=== PATIENT | female | born 1955 | race Caucasian/White ===

== ENCOUNTER → 2017-04-07 | Outpatient (CLI) | payer OTHER ==
[2017-04-07 11:15] LABS: CHOLESTEROL/HDL RATIO 2.9
== END | disposition home or self-care (01) ==
LOC: C.LABBC 07:27
PROVIDERS: ATTEND Physician Assistant Medical
DX: Z00.00 Encounter for general adult medical examination without abnormal findings (principal); Z11.59 Encounter for screening for other viral diseases

== ENCOUNTER → 2017-05-23 | Outpatient (CLI) | payer OTHER ==
--- NOTE | 2017-05-23 14:41 | MAMMOGRAPHY REPORT ---
BILATERAL DIGITAL SCREENING MAMMOGRAM TOMOSYNTHESIS WITH CAD: 05/23/2017 CLINICAL HISTORY: Routine screening. Patient has no complaints. TECHNIQUE: Breast tomosynthesis in addition to standard 2D mammography was performed. Current study was also evaluated with a Computer Aided Detection (CAD) system. COMPARISON: Comparison is made to exam dated: 03/12/2008. BREAST COMPOSITION: There are scattered areas of fibroglandular density in both breasts. FINDINGS: There is a possible cluster of punctate microcalcifications in the upper outer anterior ri ght breast, for which additional spot magnification views are recommended. A 5 mm focal asymmetry in the central left breast was not definitely seen on the prior mammogram from 03/12/2008 and additiona l spot compression tomosynthesis views and possible ultrasound are recommended. No other suspicious mass, architectural distortion or cluster of microcalcifications is seen bilatera lly. IMPRESSION: ACR BI-RADS CATEGORY 0: INCOMPLETE EVALUATION: NEED ADDITIONAL IMAGING EVALUATION The possible cluster of punctate microcalcifications in the upper outer right breast, and 5 mm focal asymmetry in the central left breast need additional imaging evaluation. The patient will be called to schedule an appointment. Approximately 10% of breast cancers are not detected with mammography. A negative mammographic report should not delay biopsy if a clinically suggestive mass is present. Candy Pantoja M.D. ay/:05/23/2017 08:36:03 Adult Neurologist: Danika Perdomo, [facility] letter sent: Addl Imaging 0 BI-RADS Code: ACR BI-RADS Category 0: Incomplete Evaluation: Need Additional Imaging Evaluation
== END | disposition home or self-care (01) ==
LOC: C.MAMM 07:13
PROVIDERS: ATTEND Physician Assistant Medical
DX: Z12.31 Encounter for screening mammogram for malignant neoplasm of breast (principal)

== ENCOUNTER → 2017-05-25 | Outpatient (CLI) | payer OTHER ==
--- NOTE | 2017-05-25 15:35 | MAMMOGRAPHY REPORT ---
BILATERAL DIGITAL DIAGNOSTIC MAMMOGRAM TOMOSYNTHESIS AND TARGETED LEFT ULTRASOUND: 05/25/2017 CLINICAL HISTORY: Callback from screening mammogram for left breast asymmetry and right breast calcif ications. TECHNIQUE: Breast tomosynthesis in addition to standard 2D mammography was performed. Spot compress ion left CC and MLO 2-D and tomosynthesis images and spot magnification right cc and ML views were ob tained. COMPARISON: Comparison is made to exams dated: 05/23/2017 mammogram - [facility] an d 03/12/2008. BREAST COMPOSITION: There are scattered areas of fibroglandular density in both breasts. FINDINGS: Spot magnification views of the right breast demonstrate a small 5 mm cluster of faint pun ctate calcifications in the right upper outer quadrant. When compared to prior exams, the calcificat ions may have been present on the prior 2007 mammograms although it is difficult to make an accurate comparison due to significant differences in mammographic technique. The calcifications are probably benign given probable long-term stability and recommend follow-up mammograms in 6 months to confirm stability on spot magnification views. Spot compression views of the left breast demonstrate an oval circumscribed 5 mm mass within the left superior breast at 12:00, best seen on the cc tomosynthesis images. Targeted ultrasound was performed of the left 12:00 breast in the region of the mammographic mass. I n the left breast at 12:00 periareolar region, there is a round circumscribed hypoechoic 3 x 2 x 3 mm mass. This likely corresponds with the mammographic mass and is indeterminant, and may represent a complicated cyst versus a solid mass. In the left breast at 11:00 periareolar region, there is a sma ller round circumscribed hypoechoic 2 x 2 mm mass which appears similar to the 12:00 mass and is prob ably benign. In the left 11:00 breast, 1 cm from the nipple, there is an oval anechoic benign simple cyst measuring 2 x 2 mm. IMPRESSION: ACR BI-RADS CATEGORY 4: SUSPICIOUS, TARGETED ULTRASOUND ACR BI-RADS CATEGORY 4: SUSPICIO US 1. Hypoechoic 3 mm mass in the left 12:00 breast, which likely corresponds with a newly visualized m ammographic mass. The mass is indeterminate and ultrasound-guided aspiration versus core needle biop sy is recommended for further evaluation. This may represent a complicated cyst versus a solid mass. 2. Pending benign pathology results of the left breast mass, recommend follow-up diagnostic mammogra ms and ultrasound of the left breast in 6 months to confirm stability of a smaller similar appearing 2 mm mass in the left 11:00 breast on ultrasound. 3. Small 5 mm cluster of punctate benign calcifications in the right upper outer quadrant, which was likely present on the 2007 exam although it is difficult to make an accurate comparison due to techn ical differences. Recommend follow-up diagnostic mammograms of the right breast in 6 months to confi rm stability on spot magnification views. A phone call was made to the physician's office to confirm faxed results were received. The patient has been verbally notified of the results. She tentatively scheduled the biopsy before leaving the [facility]. Approximately 10% of breast cancers are not detected with mammography. A negative mammographic report should not delay biopsy if a clinically suggestive mass is present. Onelia Patel M.D. ah/:05/25/2017 12:21:50 Emergency Department Coordinator: Georgia NELSON(Janet)(Karie), [facility] letter sent: Abnormal 4/5 BI-RADS Code: ACR BI-RADS Category 4: Suspicious Ultrasound BI-RADS: ACR BI-RADS Category 4: Suspici ous
== END | disposition home or self-care (01) ==
LOC: C.MAMM 11:06
PROVIDERS: ATTEND Physician Assistant Medical
DX: N64.89 Other specified disorders of breast (principal); R92.0 Mammographic microcalcification found on diagnostic imaging of breast; N63 Unspecified lump in breast

== ENCOUNTER → 2017-05-30 | Outpatient (CLI) | payer OTHER ==
--- NOTE | 2017-05-30 12:20 | MAMMOGRAPHY REPORT ---
UNILATERAL LEFT DIGITAL DIAGNOSTIC MAMMOGRAM TOMOSYNTHESIS: 05/30/2017 CLINICAL HISTORY: Status post ultrasound guided cyst aspiration 2 in the left breast. Please refer to the report from left breast ultrasound guided cyst aspiration performed at the same t stu for full detail. IMPRESSION: Please refer to the report from left breast ultrasound guided cyst aspiration performed at the same t stu for full detail. Approximately 10% of breast cancers are not detected with mammography. A negative mammographic report should not delay biopsy if a clinically suggestive mass is present. Candy Pantoja M.D. ay/:05/30/2017 10:21:43 Advertising Coordinator: Leticia NELSON(R)(M), [facility] BI-RADS Code: n/a
--- NOTE | 2017-05-30 12:20 | MAMMOGRAPHY REPORT ---
ASPIRATION: 05/30/2017 CLINICAL HISTORY: 3 indeterminate cystic-appearing masses in the left breast. Patient presents for u ltrasound-guided cyst aspiration versus core biopsy of the mass in the 12:00 periareolar breast. Dur ing evaluation for this 12:00 mass, another cystic-appearing mass is identified in the 11:00 left montrell ast, 2 cm from the nipple. Please refer to the report from left breast ultrasound guided cyst aspiration performed at the same t stu for full detail. IMPRESSION: ASPIRATION Please refer to the report from left breast ultrasound guided cyst aspiration performed at the same t stu for full detail. Candy Pantoja M.D. ay/:05/30/2017 09:07:24 Brim Raiser: Leticia TELLEZ)(Karie), [facility]
--- NOTE | 2017-06-01 13:52 | MAMMOGRAPHY REPORT ---
ASPIRATION LEFT BREAST: 05/30/2017 CLINICAL HISTORY: Status post ultrasound-guided cyst aspiration of an indeterminate solid versus cyst ic mass in the 12:00 left breast, and another oval parallel hypoechoic solid versus cystic mass in th e 11:00 left breast. Patient was initially called back from screening for a small, 4 mm nodular asym metry in the middle one third of the left breast, along the posterior nipple line on the CC view. COMPARISON: Comparison is made to exams dated: 05/30/2017 mammogram, 05/30/2017 aspiration, 05/25/2017 ultrasound, 05/25/2017 mammogram, 05/23/2017 mammogram - [facility], and 03/12/2008. PATIENT CONSENT: After explaining the risks, benefits and alternatives of the procedure to the patien t, informed consent was obtained verbally and in writing. Specific risks include: bleeding, infection and puncture of adjacent structure. A time out was preformed in the left breast was agreed as the si te for cyst aspiration 2. PROCEDURE DESCRIPTION: First repeat targeted ultrasound was performed in the 11:00 and 12:00 axes of the left breast, to reevaluate the small hypoechoic 3 mm solid versus cystic mass identified on prior diagnostic ultrasound dated 02/14. It is again identified and amenable to ultrasound bambi ded cyst aspiration versus core biopsy. However, another oval parallel hypoechoic solid versus cysti c circumscribed mass was seen in the 11:00 left breast, 2 cm from the nipple, measuring 6.2 x 2.4 mm. It is unclear if this may possibly correlate with the nodular mammographic asymmetry and therefore ultrasound guided cyst aspiration of both of these masses was attempted. First the solid versus cystic mass in the 11:00 axis was identified with ultrasound. 1% buffered lid ocaine without epinephrine was administered subcutaneously and intraparenchymally as well as surround ing this mass. Then a 22-gauge needle was advanced the site of the mass and aspiration was performed . A collapsed and resolved completely. Then the mass in the 12:00 axis, periareolar region was iden tified. Additional 1% buffered lidocaine without epinephrine was administered as local anesthesia. A 22-gauge needle was advanced into this mass and a collapsed, resolving completely, confirming cysti c nature. The fluid obtained from both cystic masses was clear and straw-colored, therefore discarde d given that the cyst resolved completely. Postprocedure left CC and MLO 2-D and tomosynthesis were obtained after cyst aspiration 2 in the lef t breast. However, the 4 mm nodular asymmetry persists. This demonstrates that neither of the aspir ated cystic masses correlates with the mammographic finding. Based on the CC tomosynthesis images, i t is localizing inferiorly. Then after the postprocedure images, additional targeted ultrasound was p erformed in the 5:00, 6:00 and 7:00 axes of the left breast and no discrete solid or cystic mass was seen. Therefore, this 4 mm nodular asymmetry remains indeterminate and definitive characterization w ith a breast MRI is recommended. IMPRESSION: ASPIRATION Status post aspiration to resolution of 2 benign cysts in the 11:00 and 12:00 axes of the left breast . However, neither of the cysts aligned with the mammographic nodular asymmetry in question and ther efore this remains indeterminate. Definitive characterization with a bilateral contrast-enhanced montrell ast MRI is recommended. The patient will be called to schedule an appointment. Candy Pantoja M.D. ay/:05/31/2017 16:11:50 Agriculture Internship: Leticia Villa RT(R)(M), [facility] letter sent: Addl Imaging 0
== END | disposition home or self-care (01) ==
LOC: C.MAMM 07:49
PROVIDERS: ATTEND Physician Assistant Medical
DX: N63.0 Unspecified lump in unspecified breast (principal)

== ENCOUNTER → 2017-06-08 | Outpatient (CLI) | payer OTHER ==
[2017-06-08 17:41] LABS: BLOOD UREA NITROGEN 21 mg/dl (7-18); CREATININE 0.74 mg/dl (0.60-1.20)
== END | disposition home or self-care (01) ==
LOC: C.LABBC 12:58
PROVIDERS: ATTEND Physician Assistant Medical
DX: Z00.00 Encounter for general adult medical examination without abnormal findings (principal)

== ENCOUNTER → 2017-06-13 | Outpatient (CLI) | payer OTHER ==
[~2017-06-13] MED LIST: GADAVIST IV PRN
--- NOTE | 2017-06-15 07:48 | MAMMOGRAPHY REPORT ---
BREAST MRI OF BOTH BREASTS : 06/13/2017 CLINICAL HISTORY: 62-year-old woman with a new nodular asymmetry identified in the middle one third o f the left breast along the posterior nipple line on the CC view for which ultrasound was performed f or further characterization. On ultrasound, there were 2 cysts identified in the left breast, one of which was thought to correlate with the mammographic finding and both were subsequently aspirated. Both cysts aspirated to resolution on ultrasound, but on the postprocedure mammograms, the nodular as ymmetry persisted. An MRI was done recommended for definitive characterization. COMPARISON: Comparison is made to exams dated: 05/30/2017 aspiration, 05/30/2017 aspiration, 05/30/2017 mammogram, 05/25/2017 ultrasound, 05/25/2017 mammogram, and 05/23/2017 mammogram - [facility]. TECHNIQUE: Using a 1.5 Kaleigh magnet and dedicated breast coil, multisequence axial images were obtain ed through the breasts. After uneventful IV administration of 8.5 mL of Gadavist, dynamic multiphase contrast-enhanced axial images, and sagittal postcontrast were obtained. Temporal subtraction axial images and 3-D MIP images are provided. Everything was then reviewed on a 3-D workstation, [employer]. FINDINGS: There is [id number] background parenchymal enhancement in both breasts. There is no dominant suspicious enhancing mass, suspicious non-mass enhancement or areas of architectural distort ion identified in either breast. No single discrete focus of enhancement or cyst is seen in the left breast along the posterior nipple line that definitively correlates with the mammographic finding. Given that nothing enhances in this area either, the mammographic finding is probably benign. Howeve r, a short interval follow-up left diagnostic tomosynthesis mammogram is recommended to ensure stabil ity in 6 months. There are other scattered enhancing foci bilaterally most of which demonstrate fei gn type persistent kinetics. However, a single ovoid 4.7 mm focus in the 12:00 middle one third of t he right breast (page 78/120) demonstrates plateau and washout kinetics. Although this is still like ly within the range of background enhancement, a short interval follow-up breast MRI is recommended t o ensure stability in 6 months. There is no focal skin thickening or nipple retraction. The retromammary fat is intact bilaterally. No suspicious axillary lymphadenopathy bilaterally. Incidental note is made of a T2 hyperintense nonenhancing cyst in the right hepatic lobe measuring 13 x 9 mm. IMPRESSION: ACR-BI-RADS CATEGORY 3: PROBABLY BENIGN 1. There is no suspicious enhancing mass, dominant cyst or non-mass enhancement in the left breast a long the posterior nipple line to correlate with the persistent nodular asymmetry seen mammographical ly. This finding is probably benign but a short interval follow-up left diagnostic tomosynthesis nino mogram and possible ultrasound is recommended to ensure stability in 6 months. 2. There is a single ovoid focus of enhancement in the 12:00 middle one third of the right breast me asuring 4.7 mm that demonstrates plateau and washout kinetics. Given that the remainder of the foci in both breasts demonstrate persistent kinetics, a short interval follow-up breast MRI is recommended to ensure stability in 6 months, although this still likely represents normal background enhancement . The patient will receive written notification of the results. Candy Pantoja M.D. ay/:06/14/2017 16:49:50 Baseball Coach: etl consultant, [facility] letter sent: Follow Up Recommended 3 BI-RADS Code: ACR-BI-RADS Category 3: Probably Benign
== END | disposition home or self-care (01) ==
LOC: C.MRI 13:29
PROVIDERS: ATTEND Physician Assistant Medical
DX: R92.8 Other abnormal and inconclusive findings on diagnostic imaging of breast (principal); N64.89 Other specified disorders of breast

== ENCOUNTER → 2017-12-18 | Outpatient (CLI) | payer OTHER ==
[2017-12-18 07:38] LABS: BLOOD UREA NITROGEN 22 mg/dl (7-18); CREATININE 0.84 mg/dl (0.60-1.20)
--- NOTE | 2017-12-19 07:40 | MAMMOGRAPHY REPORT ---
UNILATERAL LEFT DIGITAL DIAGNOSTIC MAMMOGRAM TOMOSYNTHESIS WITH CAD: 12/18/2017 CLINICAL HISTORY: 62-year-old woman presents for follow-up in the left breast. She was initially not ed to have a 5 mm nodular asymmetry in the left breast along the posterior nipple line on the cc view based on the 05/25/2017 screening mammogram. Subsequent diagnostic mammography and ultrasound demons trated probable complicated cysts in the 11:00 and 12:00 axis of the left breast which were aspirated but did not definitely correlate with the initial asymmetry and therefore breast MRI was recommended . The subsequent MRI did not demonstrate a suspicious enhancing mass or a cyst in that area and a fo llow-up MRI now does demonstrate 2 abutting cysts, which confirm benignity. TECHNIQUE: Left breast tomosynthesis in addition to standard 2D mammography was performed. Current st udy was also evaluated with a Computer Aided Detection (CAD) system. COMPARISON: Comparison is made to exams dated: 12/18/2017 breast MRI, 06/13/2017 breast MRI, 7 aspiration, 05/30/2017 aspiration, 05/30/2017 mammogram, and 05/25/2017 mammogram - [facility]. BREAST COMPOSITION: There are scattered areas of fibroglandular density in the left breast. FINDINGS: There is a bilobed mass versus 2 abutting circumscribed masses in the 12:00 middle one thir d of the left breast, measuring 7.9 x 4.9 mm. This is the area of the initial nodular asymmetry seen on screening mammography performed 05/23/2017. An MRI performed earlier on the same day demonstrated 2 abutting T2 hyperintense nonenhancing cysts in that location, confirming benignity. Therefore, no further workup is needed regarding this mass/masses as they represent benign cysts. There is no new suspicious enhancing mass, asymmetry, area of architectural distortion or suspicious calcifications in the left breast. IMPRESSION: ACR BI-RADS CATEGORY 2: BENIGN 1. The nodular asymmetry in the 12:00 left breast is increased in size, currently representing a danielle alyse circumscribed mass versus 2 abutting masses measuring 7.9 x 4.9 mm. An MRI performed earlier on the same day confirms benign T2 hyperintense nonenhancing cysts in this location and therefore no fu rther close follow-up or workup is needed at this time. There is no other suspicious abnormality in the left breast and would recommend routine screening mammography in 1 year. 2. However, the breast MRI did demonstrate a 6.3 mm area of linear non-mass enhancement in the right breast for which MRI guided biopsy was recommended. Please refer to the MRI report for full detail. 3. It should also be noted that based on the diagnostic mammogram report from 05/25/2017, a follow-up was recommended regarding punctate microcalcifications in the right breast, which were likely presen t dating back to 2005 but there were differences in technique. There is no definite enhancement in t he right breast in this location on MRI, but correlation with postprocedure images of the right breas t are recommended, with possible additional spot magnification views to be performed to the day of th e MRI biopsy. Approximately 10% of breast cancers are not detected with mammography. A negative mammographic report should not delay biopsy if a clinically suggestive mass is present. Candy Pantoja M.D. ay/:12/18/2017 21:00:33 Administration Internship: Danika NELSON(R)(M), [facility] BI-RADS Code: ACR BI-RADS Category 2: Benign
--- NOTE | 2017-12-19 07:40 | MAMMOGRAPHY REPORT ---
BREAST MRI OF BOTH BREASTS : 12/18/2017 CLINICAL HISTORY: 62-year-old woman called back from screening mammography dated 05/23/2017 for a poss ible cluster of punctate microcalcifications in the upper outer quadrant of the right breast, and a 5 mm focal asymmetry in the central left breast. Additional workup demonstrated small subcentimeter m asses in the 11:00 and 12:00 left breast which were aspirated and felt to resolve after aspiration re presenting benign complicated cysts. However, the initial mammographic finding did not resolve and t herefore a breast MRI was recommended. The microcalcifications in the right breast were felt to be p robably benign and a six-month follow-up exam was recommended. A subsequent breast MRI demonstrated a small 5 mm area of linear enhancement in the right breast, but no definite correlate for the nodula r asymmetry in the left breast and a six-month follow-up breast MRI was recommended. COMPARISON: Comparison is made to exams dated: 05/25/2017 mammogram, 05/25/2017 ultrasound, 05/30/2017 mammogram, 05/30/2017 aspiration, 05/30/2017 aspiration, and 06/13/2017 breast MRI - [facility]. TECHNIQUE: Using a 1.5 Kaleigh magnet and dedicated breast coil, multisequence axial images were obtain ed through the breasts. After uneventful IV administration of 8.5 mL of Gadavist, dynamic multiphase contrast-enhanced axial images, and sagittal postcontrast were obtained. Temporal subtraction axial images and 3-D MIP images are provided. Everything was then reviewed on a 3-D workstation, [employer]. FINDINGS: Right breast: There is minimal background parenchymal enhancement of the right breast. There is a si ngle focal area of linear non-mass enhancement in the 12:00/retroareolar versus central right breast (best seen on the axial subtraction images page 83/132). This focal area of non-mass enhancement aga in demonstrates central washout and peripheral plateau kinetics and currently measures 6.3 mm in AP d imension, previously 5 mm. Although the slight differences may be due to positioning this area remai ns indeterminate given that it is the only area of linear enhancement and washout kinetics in the rig ht breast. These findings could represent an intraductal process and therefore definitive characteri zation with an MRI guided biopsy is recommended to exclude the possibility of DCIS. No other new justin picious enhancing masses, non-mass enhancement, architectural distortion or suspicious kinetics are s een in the right breast. No focal skin thickening or nipple retraction. No suspicious right axillar y lymphadenopathy. Left breast: There is mild background parenchymal enhancement of the left breast. There are 2 adjace nt/abutting circumscribed oval nonenhancing masses in the 12:00 middle one third of the left breast ( axial page 148/264 T1 [id number] sequence, sagittal page 30/120), that demonstrate intrinsic T 1 hyperintensity, T2 hyperintensity and demonstrates no appreciable enhancement. These masses measur e 7.1 x 4.7 x 4.5 mm and are new/larger comparing to the prior MRI, consistent with benign cysts they correspond to the location of the initial nodular asymmetry seen mammographically, and on the curren t tomosynthesis mammogram the asymmetry is larger, compatible with a benign fluctuating cyst. There is no evidence of a suspicious enhancing mass, suspicious non-mass enhancement, architectural distort ion or suspicious kinetics in the left breast. No skin thickening or nipple retraction. No suspicio us left axillary lymphadenopathy. Incidental note is made of degenerative disc disease in the lower cervical spine, seen on the 3 plane localizer sequence. IMPRESSION: ACR BI-RADS CATEGORY 4: SUSPICIOUS 1. Right breast MRI guided biopsy is recommended for focal linear non-mass enhancement measuring 6.3 mm in the 12:00/retroareolar versus central right breast that demonstrates central washout kinetics. 2. There are 2 abutting subcentimeter T2 hyperintense, nonenhancing cysts in the 12:00 left breast, thought to correspond with the initial nodular mammographic asymmetry. The cysts are benign no furth er close follow-up is needed at this time. The MRI images were reviewed with the patient during a diagnostic mammogram appointment which occurre d on the same day, and the recommendations were discussed with the patient. She scheduled the right breast MRI guided biopsy prior to leaving the department. Candy Pantoja M.D. ay/:12/18/2017 20:54:14 Power Transformer Assembler: aircraft systems repairer, [facility] letter sent: Abnormal 4/5 BI-RADS Code: ACR BI-RADS Category 4: Suspicious
== END | disposition home or self-care (01) ==
LOC: C.MRI 06:52
PROVIDERS: ATTEND Internal Medicine Geriatric Medicine
DX: R92.8 Other abnormal and inconclusive findings on diagnostic imaging of breast (principal)

== ENCOUNTER → 2018-01-10 | Outpatient (CLI) | payer OTHER ==
[~2018-01-10] MED LIST changes: +LIDO/EPINEPHRINE/SOD BICARB 20 ML VIAL ONE; +LIDOCAINE 1% BUFFERED INJ 5 ML VIAL ONE
--- NOTE | 2018-01-10 11:49 | Discharge Instructions ---
Discharge Instructions Procedure Procedure Date: January 10, 2018. Reason for visit: Right Non Mass Enhancement. Discharge Discharge Date: January 10, 2018. Discharge Diagnosis: post right breast MRI guided biopsy Medications Restart Stopped Medication(s): May resume Aspirin and Advil Instructions Activity Recommendations: Additional Limitations (see below) Return to School/Work: no limitations Recommended Home Diet: No Limitations Provider Instructions: ACTIVITY RECOMMENDATIONS: * No lifting, pushing, pulling or exercising the affected side for three days. RETURN TO SCHOOL/WORK: * You may return to work/school after the procedure, but do not perform any strenuous activities for 24 to 48 hours. MEDICATIONS: * Tylenol (two 325 mg) every four to six hours if needed for mild pain (if not allergic to Tylenol). DIET: * Resume previous diet. SPECIAL CARE INSTRUCTIONS: * Keep biopsy site dry for 24 hours. May shower after 24 hours, but do not soak (bathe) incision. * May remove Tegaderm (plastic patch) tomorrow AFTER showering. * Leave the steri-strips on for one week. Allow the steri-strips to fall off by themselves. If not off after one week, you may remove them. You may place a Bandaid crosswise over the strips, if desired. * Apply ice 10 minutes on and 10 minutes off as needed. * Wear a bra at bedtime to sleep more comfortably for 2-3 days. * Your referring physician should have the results after approximately 5 to 7 business days. * Call for unusual bleeding, fever, drainage, etc or if you have any questions call [phone] during normal business hours or after hours call Dr Pantoja, . FOLLOW UP VISIT: Follow-up with Referring Physician as scheduled. Deanne Bennett Recommendations: Call your doctor if: * Temperature above 101 degrees * Pain not relieved by pain medicine ordered * There is increased drainage or redness from any incision * You have any unanswered questions or concerns. Your Doctors Instructions noted above were prepared by provider Candy Pantoja. Patient Signature Section: Patient Instructions Signature Page Priya Mcintyre Patient (or Guardian) Signature/Date: I have read and understand the instructions given to me by my caregivers. Caregiver/RN/Doctor Signature/Date: The above-named patient and/or guardian has received patient instructions on this date. + Original Patient Signature Page (only) stays with chart. Please make copy for patient.
--- NOTE | 2018-01-10 15:22 | MAMMOGRAPHY REPORT ---
MRI BIOPSY RIGHT BREAST: 01/10/2018 CLINICAL HISTORY: 6.3 mm focal linear non-mass enhancement in the 12:00/retroareolar right breast. Anni mathew presents for MRI guided biopsy. COMPARISON: Comparison is made to exams dated: 12/18/2017 mammogram, 12/18/2017 breast MRI, and 2016 breast MRI - [facility]. PATIENT CONSENT: After explaining the risks, benefits and alternatives of the procedure to the patien t, informed consent was obtained both verbally and in writing. Specific risks include: Bleeding, inf ection, puncture of adjacent structure, medication reaction, breast or lung injury, sampling error. PROCEDURE DESCRIPTION: A procedural timeout was performed prior to starting the procedure, and [facility] agreed as the site for biopsy. The patient was placed prone on a 1.5 [place] MRI scanner. The medial aspect of the right breast was c leansed with ChloraPrep. The right breast was positioned in a dedicated breast coil and MRI guidance grid device. After localizing sequences were obtained, pre-and postcontrast axial sequences were obtained, using 8 mL of Gadavist without immediate reaction. The postcontrast images confirm the persistence of the l inear non mass enhancement with suspicious kinetics in the 12:00/retroareolar right. Using these imag es, targeting was performed using [employer] software. The skin was re-prepped with Betadine through the grid, and after local anesthesia was achieved, an i ntroducer sheath and localizing maintenance operator were placed into the site using a medial approach. The locat ion of the obturator sheath was confirmed with additional axial images. After confirming adequate pl acement of the obturator sheath, 10 samples were obtained with a [place] [employer] 9 gauge vacuum-assisted b iopsy device. Post biopsy images demonstrate good sampling of the lesion, therefore, through the introducer sheath, a metallic biopsy marker was placed. The patient tolerated the procedure well and there was no immediate complication. Hemostasis was ach ieved after several minutes of manual compression. The samples were sent to pathology in an appropri ately labeled container. Postprocedure right CC and ML tomosynthesis images were obtained. There is a new figure of 8 biopsy marker clip in the central right breast at the site of the biopsied linear non-mass enhancement seen on MRI. The small grouping of faint microcalcifications measuring approximately 3 mm in the upper ou ter middle one third of the right breast is again noted and likely similar to the spot magnification views obtained on 05/25/2017. Given that there was no other enhancement in the right breast on MRI an d the calcifications may have been present dating back to 2005 there are likely benign. However, the patient is due for bilateral annual mammography in April 2018 and would recommend remaining a di agnostic patient for additional spot magnification views of the right breast at that time. IMPRESSION: MRI BIOPSY 1. Status post MRI guided biopsy of 6.3 mm focal linear non-mass enhancement in the 12:00/retroareol ar right breast, with figure of 8 shaped biopsy marker clip placed at the site. 2. A small faint 3 mm grouping of microcalcifications in the upper outer middle one third of the rig ht breast appears similar to prior mammograms and likely benign, given long-term stability. However, with slight increased conspicuity would recommend another diagnostic follow-up in April 2018 inc luding spot magnification views of the right breast, when the patient is due for annual bilateral nino mography. 3. Pending benign pathology results, recommend a follow-up breast MRI in 6 months to ensure stability and adequate sampling. The patient will receive notification of the biopsy results from her referring physician. Candy Pantoja M.D. ay/:01/10/2018 13:49:50 Packaging Assembler: Dr. Candy Pantoja, [facility]
--- NOTE | 2018-01-10 15:26 | MAMMOGRAPHY REPORT ---
UNILATERAL RIGHT DIGITAL DIAGNOSTIC MAMMOGRAM TOMOSYNTHESIS: 01/10/2018 CLINICAL HISTORY: 6.3 mm linear non-mass enhancement in the 12:00/retroareolar right breast seen on r ecent breast MRI. Patient presents for MRI guided biopsy. Please refer to the report from right breast MRI guided biopsy performed at the same time for full de tail. IMPRESSION: POST PROCEDURE IMAGING FOR MARKER PLACEMENT Please refer to the report from right breast MRI guided biopsy performed at the same time for full de tail. Pending benign pathology results, a follow-up breast MRI in 6 months is recommended to demonstrate st ability. Approximately 10% of breast cancers are not detected with mammography. A negative mammographic report should not delay biopsy if a clinically suggestive mass is present. Candy Pantoja M.D. ay/:01/10/2018 12:49:54 Certified Credit Counselor: Danika Perdomo, [facility] BI-RADS Code: Post Procedure Imaging For Marker Placement
== END | disposition home or self-care (01) ==
LOC: C.MRI 10:15
PROVIDERS: ATTEND Internal Medicine Geriatric Medicine
DX: N63.10 Unspecified lump in the right breast, unspecified quadrant (principal); N60.91 Unspecified benign mammary dysplasia of right breast

== ENCOUNTER 2024-09-23 05:09 | Observation (INO) ==
--- NOTE | 2024-08-26 11:47 | PAT Medication Instructions ---
Medication Instructions Date of Service August 26, 2024 Home Medications calcium 600 mg (as carbonate)-vit D3 20 mcg (800 unit) chewable tablet (Caltrate plus D) 1 tab PO BID cholecalciferol (vitamin D3) 25 mcg (1,000 unit) capsule 25 mcg PO QAM Probiotic 2 tab PO QAM biotin 10,000 mcg chewable tablet (Hair, Skin and Nails (biotin)) 30,000 mcg PO QAM DO NOT take the morning of surgery calcium 600 mg (as carbonate)-vit D3 20 mcg (800 unit) chewable tablet (Caltrate plus D) 1 tab PO BID cholecalciferol (vitamin D3) 25 mcg (1,000 unit) capsule 25 mcg PO QAM Probiotic 2 tab PO QAM biotin 10,000 mcg chewable tablet (Hair, Skin and Nails (biotin)) 30,000 mcg PO QAM Take evening before surgery calcium 600 mg (as carbonate)-vit D3 20 mcg (800 unit) chewable tablet (Caltrate plus D) 1 tab PO BID MORNING OF SURGERY: NOTHING TO EAT OR DRINK AFTER MIDNIGHT Other Notes If you have any questions please call us at [phone] or [phone] or [phone] or [phone]
--- NOTE | 2024-09-02 09:15 | Anesthesiology Consultation ---
Date of Service September 02, 2024 Assessment & Plan (1) Encounter for pre-operative examination: - Outpatient joint assessment: Patient is currently scheduled for inpatient pathway. If re-evaluated and patient/surgeon requests outpatient pathway, patient is acceptable candidate for outpatient joint program from anesthesia standpoint pending surgeon's office assessment of pt motivation/support/completion of same day joint program preop requirements. Chart Review Chart Review: Acceptable Risk for Surgery and Patient seen in Pre Admission Testing Teaching & Discussion Pre-Anesthesia Teaching/Discussion Notes: Instructed NPO after midnight before surgery, except medications with 15 cc of water. Medication instructions provided according to the PAT guidelines. History Surgery Operation Date: 09/23/24 08:50 Proposed Procedures p Left Total Hip Arthroplasty - Gonzalo Howell MD Height/Weight Height: 5 ft 3.5 in Weight: 75 kg Allergies Allergy/AdvReac Type Severity Reaction Status Date / Time Penicillins Allergy Intermediate Hives Verified 08/20/24 08:30 clindamycin Allergy Mild rash Verified 08/20/24 08:30 Medications Home Medications Medication Instructions Recorded Confirmed Last Taken calcium 600 mg (as carbonate)-vit 1 tab PO BID 05/14/24 08/20/24 Unknown D3 20 mcg (800 unit) chewable tablet (Caltrate plus D) cholecalciferol (vitamin D3) 25 25 mcg PO QAM 05/14/24 08/20/24 Unknown mcg (1,000 unit) capsule Probiotic 2 tab PO QAM 08/20/24 08/20/24 Unknown biotin 10,000 mcg chewable tablet 30,000 mcg PO QAM 08/20/24 08/20/24 Unknown (Hair, Skin and Nails (biotin)) Past Medical History Medical History (Updated 09/02/24 @ 09:32 by Gwendolyn Camara PA-C) Elevated blood pressure reading without diagnosis of hypertension white coat HTN History of COVID-19 (~04/2024) symptoms resolved Nausea and vomiting after administration of anesthetic agent "does well if premedicated" Osteoarthritis Knees and hips Prediabetes diet controlled Snoring denies witnessed apneas Patient denies h/o stroke, seizures, heart attack, heart failure, blood clots/DVTs or blood transfusions. Exercise / Class Metabolic Activity II 4-5 Yardwork/Stairs/Walk up hill (denies chest discomfort or shortness of breath with one flight of stairs) Past Family History Family History (Updated 09/02/24 @ 09:31 by Gwendolyn Camara PA-C) Uncle Colorectal cancer Uncle Colorectal cancer Father Myocardial infarction 62 y/o [place] Prostate cancer Mother , 82 y/o (h/o TIA, CVA) Stroke Other No family history of adverse response to anesthesia Denies family history of Ovarian cancer Breast cancer Lung disease Past Surgical History Surgical History (Updated 09/02/24 @ 09:32 by Gwendolyn Camara PA-C) History of arthroscopy of right knee (~2009) meniscus repair, 2009 History of bilateral tubal ligation (~1979) 1979 History of colonoscopy (~2018) 07/2019 repeat in 10 years History of right breast biopsy benign History of surgery (~2009) tvt,2009 History of tonsillectomy (~1961) 1961 History of tooth extraction Past Anesthesia History No Hx of Anesthesia Complications and No Family Hx of Anesthesia Complications History of PONV No Hx of Motion Sickness and History of PONV (does well with IV pre-dosing) Social History Smoking Status: Never smoker Do You Dip or Chew Tobacco: No Hx Alcohol Use: Yes Alcohol type: wine and hard liquor alcohol intake frequency: holidays/special occasions only Hx Substance Use: No substance use type: does not use Review of Systems Patient denies chest pain, shortness of breath, dyspnea on exertion, fever, chills, cough, wheezing, or palpitations. Physical Exam Vital Signs Vitals BP 130/80 P 59 TEMP 97.5 SP02 100% on RA RESP 18 Physical Patient resting comfortably in chair in no acute distress, alert and oriented, responding appropriately throughout visit Full cervical extension range of motion without pain TMD < 3 finger breadths Mallampati Score 3 Dentition: intact, denies chipped or loose teeth, caps/crowns, implants or bridges Lungs: normal respiratory effort. Good air movement, clear throughout to auscultation, no adventitious breath sounds Cardiac: regular rate and rhythm, no murmurs noted Carotid arteries: negative bruit bilat Lab Results Anesthesia Preop Results Results Anesthesia Widget: WBC 5.30 K/ul (4.8-10.8) 09/02/24 Hgb 12.5 g/dl (12.0-16.0) 09/02/24 Hct 38.2 % (37.0-47.0) 09/02/24 Plt 200 K/uL (130-400) 09/02/24 Na 140 mmol/L (136-145) 09/02/24 K 3.9 mmol/L (3.5-5.1) 09/02/24 Cl 104 mmol/L (98-107) 09/02/24 CO2 30 mmol/L (21-32) 09/02/24 BUN 21 mg/dl (6-23) 09/02/24 Creat 0.65 mg/dl (0.6-1.2) 09/02/24 Glucose Level 90 mg/dl (70-99(Fasting)) 09/02/24 PT 10.1 Seconds (9.0-12.0) 09/02/24 PTT 25 Seconds (21-31) 09/02/24 INR 0.9 (0.9-1.1) 09/02/24 Blood Type B Positive 09/02/24 Antibody Screen NEGATIVE 09/02/24 Testing Electrocardiogram Date: 09/02/24 NSR, rate 62 bpm Chest X-Ray Date: 09/02/24 No acute findings.
--- NOTE | 2024-09-18 17:39 | History & Physical Report ---
Date of Service September 18, 2024 Assessment & Plan (1) Osteoarthritis, hip, bilateral: 69-year-old female with advanced bilateral hip arthritis. She has failed conservative measures. She is markedly debilitated by her disease and would like to have her hip fixed. The left side is worse than the right. Plan: We are going to take her to the operating room do a left total hip replacement. The risks Mente this procedure explained in depth. The patient understands and desires to proceed. Informed consent was obtained. She is going to plan to stay in the hospital overnight and do therapy in the morning. Plan will be discharged to home with some home health and her 's assistance. We use aspirin for DVT prophylaxis. (2) Lumbar degenerative disc disease: (3) Prediabetes: History of Present Illness Chief Complaint: . Bilateral hip pain discomfort left side greater than the right. Primary Care Provider: Jw Carrillo DO . The patient is a 69-year-old female from [facility] who presents for evaluation and treatment of her hips. She has had a several year history of bilateral hip pain and discomfort and progressive stiffness. She is having more more difficulty putting her shoes on. That she takes medicines with pretty minimal relief. She limps all the time but gets worse as the day goes on. She has lost about 60 pounds but ended up putting about 30 of it back on. She is having difficulty staying active. She like to have her hips fixed. Allergies Allergy/AdvReac Type Severity Reaction Status Date / Time Penicillins Allergy Intermediate Hives Verified 08/20/24 08:30 clindamycin Allergy Mild rash Verified 08/20/24 08:30 Home Medications Medication Instructions Recorded Confirmed Type calcium 600 mg (as carbonate)-vit 1 tab PO BID 05/14/24 08/20/24 History D3 20 mcg (800 unit) chewable tablet (Caltrate plus D) cholecalciferol (vitamin D3) 25 25 mcg PO QAM 05/14/24 08/20/24 History mcg (1,000 unit) capsule Probiotic 2 tab PO QAM 08/20/24 08/20/24 History biotin 10,000 mcg chewable tablet 30,000 mcg PO QAM 08/20/24 08/20/24 History (Hair, Skin and Nails (biotin)) Past Med/Surg History Problem List Lumbar degenerative disc disease Osteoarthritis, hip, bilateral Prediabetes Elevated blood pressure reading without diagnosis of hypertension Medical History History of COVID-19 (~04/2024) symptoms resolved Snoring denies witnessed apneas Elevated blood pressure reading without diagnosis of hypertension white coat HTN Prediabetes diet controlled Nausea and vomiting after administration of anesthetic agent "does well if premedicated" Osteoarthritis Knees and hips Surgical History History of tooth extraction History of right breast biopsy benign History of bilateral tubal ligation (~1979) 1979 History of arthroscopy of right knee (~2009) meniscus repair, 2009 History of surgery (~2009) tvt,2009 History of colonoscopy (~2018) 07/2019 repeat in 10 years History of tonsillectomy (~1961) 1961 Family History Uncle Colorectal cancer Uncle Colorectal cancer Father Myocardial infarction 62 y/o at [place] Prostate cancer Mother , 82 y/o (h/o TIA, CVA) Stroke Other No family history of adverse response to anesthesia Denies family history of Ovarian cancer Breast cancer Lung disease Social History Smoking Status: Never smoker Second Hand Exposure: Yes (hx growing up and used to smoke); Do You Dip or Chew Tobacco: No; Hx Alcohol Use: Yes Alcohol type: wine and hard liquor Alcohol Intake Frequency: Monthly or Less Alcohol Intake Frequency Comment: social Hx Substance Use: No Preferred Language: Mohawk Communication Ability: Effective Visual Impairment: Diminished Hearing Ability: Normal Lump Maker Required: No Beliefs That Will Affect Care: None marital status: Current Living Situation: Spouse current occupational status: retired How many Children do You have: 3 Feels Safe at Home: Yes Childhood Exposure to Second-Hand Smoke: Yes Diet: regular caffeine: Yes Dental Care, Regularly: Yes Physical Activity Frequency: 3-4 Times per Week Seatbelt Use: always Sunscreen Use: Yes Assistive Devices: Glasses Review of Systems All systems reviewed & are unremarkable except as noted in HPI & below. Physical Exam . Physical examination reveals a pleasant healthy middle-aged female who looks to be in pretty good health. Examination of both hips reveal patient walks independently. She walks with a little bit of waddling gait in tennis stiff hips. Examination left hip reveals external rotation contracture about 10 degrees. Leg lengths are pretty equal. She has pain with any attempted hip mo tion particularly internal rotation. She is neurologically intact. No effusion. Examination of the right hip reveals some stiffness but less than the left side. She can internally rotate to neutral. There are some mild pain. Negative straight leg raise. She is neurologically intact. Constitutional WD/WN, vitals as above Respiratory normal respiratory effort, lungs clear to auscultation Cardiovascular RRR, no murmur, no edema Gastrointestinal (Abdomen) normal bowel sounds, soft, nontender, no hepatosplenomegaly Results & Data Results & Data Laboratory Results . Diagnostic Findings . X-rays of both hips were reviewed. She has advanced bilateral hip arthritis. The left side is a bit worse than the right. She got complete loss of joint space. She got osteophytes around the femoral head and flattening of the femoral head on both sides. PG Care Time/CCT Total # of Minutes Spent Total Time Spent with Patient: Total time spent is greater than 50% in coordination of care (as documented) at patient's floor/unit and/or counseling patient: Coding Level of Care Code None Diagnoses Osteoarthritis, hip, bilateral M16.0 Lumbar degenerative disc disease M51.36 Prediabetes R73.03
[~2024-09-23 05:09] MED LIST changes: +ALLERGY Noted to ORDERED Medication SCH; -GADAVIST IV PRN; -LIDO/EPINEPHRINE/SOD BICARB 20 ML VIAL ONE; -LIDOCAINE 1% BUFFERED INJ 5 ML VIAL ONE
[2024-09-23] MEDS: ACETAMINOPHEN 500 MG TAB PO SCH ×2 (05:46→14:52)
[2024-09-23] MEDS: dexAMETHasone**PF** 10 MG/ML VIAL IV SCH (05:46)
[2024-09-23] MEDS: FAMOTIDINE 20 MG TAB PO SCH (05:46)
[2024-09-23] MEDS: CeleBREX 200 MG CAP PO SCH (05:46)
[2024-09-23] MEDS: METOCLOPRAMIDE HCL 10 MG TABLET PO SCH (05:46)
[2024-09-23] MEDS: LR 60ML/HR IV SCH (05:47)
[2024-09-23] MEDS: LR 500ML BOLUS, THEN 15ML/HR IV SCH (05:47)
[2024-09-23] MEDS ORDERED: fentaNYL citrate PF 100 MCG/2 ML VIAL ONE (06:21)
[2024-09-23] MEDS ORDERED: MIDAZOLAM HCL 1 MG/ML 2ML VIAL ONE (06:21)
[2024-09-23] MEDS ORDERED: BUPIVACAINE 0.5 % 5 MG/1 ML PF 10ML VIAL ONE (06:24)
[2024-09-23] MEDS ORDERED: MoRPHine SULFATE PF 1 MG/ML 10 ML AMP/VIAL ONE (06:26)
[2024-09-23] MEDS ORDERED: PROPOFOL IV EMULSION 10 MG/ML 20 ML VIAL IV ONE (06:38)
[2024-09-23] MEDS: TRANEXAMIC ACID 1,000 MG **IV Pre-op IV SCH (06:39)
--- NOTE | 2024-09-23 06:46 | History & Physical Bridge Note ---
Date of Service September 23, 2024 History & Physical Bridge Note I have examined the patient, reviewed the History & Physical and in the interval since the performance of the History & Physical I have noted the following changes of clinical significance: no changes noted
[2024-09-23] MEDS ORDERED: NALOXONE HCL 0.08 MG in SYRINGE 1.8 ML IV PRN (06:52)
[2024-09-23] MEDS ORDERED: diphenhydrAMINE 50 MG/ML VIAL IV PRN (06:52)
[2024-09-23] MEDS ORDERED: NALOXONE HCL 1 MG in SODIUM CHLORIDE 0.9% 1,000 ML IV PRN (06:52)
[2024-09-23] MEDS ORDERED: ONDANSETRON INJ 2 MG/ML 2 ML VIAL IV PRN (06:52)
[2024-09-23] MEDS ORDERED: NALOXONE HCL 0.4 MG/1 ML VIAL/CARP IV PRN (06:52)
[2024-09-23] MEDS ORDERED: ePHEDrine sulfate 50 MG/ML AMP IV PRN (06:52)
[2024-09-23] MEDS ORDERED: NALBUPHINE HCL INJ 10 MG/ML AMP IV PRN (06:52)
[2024-09-23] MEDS ORDERED: DC INTRASPINAL MORPHINE SCH (07:00)
[2024-09-23] MEDS ORDERED: NO NARCOTICS OR SEDATIVES SCH (07:00)
[2024-09-23] MEDS ORDERED: PHENYLEPHRINE 100MCG/ML 5ML SYR ONE (07:37)
[2024-09-23] MEDS: BUPIVACAINE/EPINEPHRINE 0.5% MPF 1:200,000 30 ML VIAL ONE (08:04)
--- NOTE | 2024-09-23 08:39 | Operative Report ---
PG Post Operative Report Pre & Post Diagnosis Operation Date: 09/23/24 07:00 Pre-Op Diagnosis: Left Hip Osteoarthritis Post-Op Diagnosis: Left Hip Osteoarthritis I identified the patient and participated in the time-out.: Yes Procedure Operation Date: 09/23/24 07:00 Actual Procedures p Left Total Hip Arthroplasty(Left) - Gonzalo Howell MD Surgeon Gonzalo Howell MD Contracting Support Specialist Warren Hunt PA-C Estimated Blood Loss 100 Findings Consistent with Post-Op Diagnosis Operative findings revealed advanced left hip DJD. She had extensive grade 4 [id number] disease of the femoral head and acetabulum. She had a fairly significant medial as well as anterior inferior acetabular osteophytes. Specimens Left femoral head sent for pathology. Anesthesia Type Spinal MAC Complications none Disposition Accompanied Patient To Recovery: No Indications Patient is a 69-year-old female whose had a several year history of increasing bilateral hip pain discomfort described to gotten worse over time. Been through extensive conservative treatments became less successful. X-rays show advanced bilateral hip arthritis. She elected proceed with left total hip arthroplasty. Description of Procedure Operative implants consist of: 1 Biomet G7 size 52 mm acetabular shell. 2. 6.5 cancellous acetabular screws 1 at 35 mm length and 1 of 20 mm length. 3. Highly cross-linked polyethylene liner with a 52 mm outer diameter and 36 mm inner diameter. 4. Roark hole manager finance. 5. DePuy Corail size 11 KLA femoral stem. 6. +8.5/36 mm ceramic articular ball. The patient was taken to the operating, identified, placed on the operating table in the supine position. All conductors were appropriately padded. IV antibiotics fibra anesthesia team. A spinal anesthetic been implemented holding area. A Lux catheter was placed in sterile fashion. The patient was then placed in the right lateral decubitus position. An axillary roll was placed. A stool Birkett position was used for positioning. The left hip and leg were then prepped and draped in usual sterile fashion. A posterolateral approach to the left hip was then performed to a curvilinear incision centered over the greater trochanter. Sharp dissection was got through subcutaneous tissue dental of the IT band gluteal fascia. The IT band gluteal fascia was sized longitudinally in line with skin incision. The underlying greater bursa was excised. The piriformis and external rotators along with the posterior hip joint capsule then released as a single layer. Great care was taken throughout the procedure protect the sciatic nerve at all times. The hip was then internally rotated and dislocated. A femoral neck osteotomy cut was made with Final Cut about 5 mm above the lesser trochanter. Femoral head was removed and sent for for pathology. The femur was retracted anteriorly. Attention then to the acetabulum. The acetabular labrum was excised. The pulmonary fat was excised. Sequential reaming of the acetabulum was then performed again with a size 45 and progressing up to 51. I reamed a little bit with a 52 reamer and then placed a 52 mm Biomet acetabular shell in about 40 degrees lateral opening and 20 degrees of anteversion. It was fixed with two 6.5 screws. A large anterior and inferior osteophyte was removed. Trial liner was placed. Attention drawn the femur. The proximal femur was entered with a cookie cutter followed by canal finder. I then broached beginning with a size 8 and progressing up to 11. Get excellent fit 11. We trialed the hip and the hip was fully stable with the +5 articular ball. The soft tissue tension still seems a little bit lax due to the large osteophytes in the medial medialization of the acetabulum. Leg lengths appear pretty equal. Knowing that we are going to have to do her other hip in the future I elected to place a slightly longer neck to maximize her stability and soft tissue tension knowing that we are going to have to proceed with hip replacement at the side at some point. Was willing to except a slight leg length inequality in the meantime if needed. We elect to place these components. All trial components were removed. An apex hole manager finance was placed. Highly cross-linked polyethylene liner was placed. A size 11 Karaya stem was impacted in position. A +8.5/36 mm ceramic articular ball was placed. Hip was located and once again found to be stable. Attention drawn toward closing. Wounds irrigated copious amounts of pulsatile lavage solution. I did inject locally with 60 cc of half percent Marcaine with epinephrine. The posterior capsule and external rotators were then repaired through drill holes in the posterior trochanter with #2 Tycron suture. The IT band gluteal fascia then closed with #1 PDS suture running fashion the subcutaneous tissue then closed with 2 layers the deep layer #2 Vicryl suture in the subcutaneous tissues with 2-0 Dexon suture in a buried interrupted fashion. Skin was then closed with skin familia. Leg was then cleaned and dried and a Prevena VAC dressing was applied due to the thick soft tissue envelope. Patient was then transferred to the recovery room in stable condition. Patient tolerated procedure well and there were no complications. Warren Hunt, my physician kindergarten teacher assistant, was present for the entire procedure. His assistance was essential and required for appropriate patient positioning, prepping and draping, surgical exposure, performing the technical details of the operation, placement the implants, closure of the wound, and placement of the st erile bandage. I attest to the content of the Intraoperative Record and any orders documented therein. Any exceptions are noted below.
--- NOTE | 2024-09-23 09:21 | XRay Report ---
XR hip 1V LT w pelvis CLINICAL HISTORY: IN PACU - Post Surgical COMPARISON: 07/19/2024 FINDINGS: AP pelvis and crosstable lateral view of the left hip demonstrates a left total hip arthro plasty has been performed with satisfactory positioning and alignment of the prosthetic components. P eriarticular postsurgical changes are noted. Advanced osteoarthritis involving the right hip is redem onstrated. IMPRESSION: Unremarkable postop hip ACT 112: Negative or not required by law. Electronically signed by: Latoya Montero M.D. 09/23/2024 9:19 AM
[2024-09-23] MEDS: ceFAZolin 2000MG 2,000 MG/15 ML SYR IV SCH (10:24)
[2024-09-23] MEDS: MoRPHine SULFATE PF 1 MG/ML 10 ML AMP/VIAL INT SPINAL ONE (10:25)
[2024-09-23] MEDS ORDERED: bisacodyL 10 MG SUPP PR PRN (10:32)
[2024-09-23] MEDS ORDERED: SENNA 8.6 MG TAB PO SCH (10:32)
[2024-09-23] MEDS ORDERED: [UNRECOGNIZED DRUG - OTHER] PO SCH (10:32)
[2024-09-23] MEDS ORDERED: MAGNESIUM HYDROXIDE SUSP 30 ML UDC PO PRN (10:32)
[2024-09-23] MEDS ORDERED: BIOTIN 10000 MCG PO SCH (10:32)
[2024-09-23] MEDS ORDERED: ALUMINUM/MAGNESIUM SUSP 30 ML UDC PO PRN (10:32)
--- NOTE | 2024-09-23 10:47 | Anesthesiology Progress Note ---
Date of Service September 23, 2024 Anesthesia Post Procedure Vital Signs Vital Signs: Temp Pulse Pulse Pulse Resp BP BP 09/23/24 10:20 97.5 F L 68 12 103/63 09/23/24 10:00 70 12 109/56 L 09/23/24 09:45 97.5 F L 73 16 105/59 L 09/23/24 09:35 75 21 104/52 L 09/23/24 09:25 74 14 109/59 L 09/23/24 09:15 72 16 114/61 09/23/24 09:05 78 18 112/52 L 09/23/24 08:55 76 16 117/52 L 09/23/24 08:45 76 12 111/50 L 09/23/24 08:35 78 20 109/50 L 09/23/24 08:27 97.9 F 80 16 112/54 L 09/23/24 05:35 97.5 F L 75 18 153/89 H Pulse Ox O2 Del Method 09/23/24 10:20 97 Room Air 09/23/24 10:00 97 Room Air 09/23/24 09:45 97 Room Air 09/23/24 09:35 99 Room Air 09/23/24 09:25 98 Room Air 09/23/24 09:15 99 Room Air 09/23/24 09:05 95 Room Air 09/23/24 08:55 99 Room Air 09/23/24 08:45 100 Room Air 09/23/24 08:35 97 Room Air 09/23/24 08:27 99 Room Air 09/23/24 05:35 98 Room Air Transfer of Care Handoff Completed per policy Notes Mental Status: alert / awake / arousable and participated in evaluation Patient Amnestic to Procedure: Yes Nausea / Vomiting: adequately controlled Pain: adequately controlled Airway Patency, RR, SpO2: stable & adequate BP & HR: stable & adequate Hydration State: stable & adequate Neuraxial Anesthesia: was administered and sensory block is resolving Anesthetic Complications: no major complications apparent and Pt Satisfied with anesthetic care
[2024-09-23] MEDS: ASPIRIN 81 MG ECTAB PO SCH (12:10)
[2024-09-23] MEDS: KETOROLAC TROMETHAMINE 15 MG/ML VIAL IV SCH (12:12)
[2024-09-23] MEDS: DOCUSATE SODIUM 100 MG CAP PO SCH (12:12)
[2024-09-23] MEDS: TRANEXAMIC ACID / 0.7% NACL 1,000 MG/100 ML BAG IV SCH (14:51)
[2024-09-23] MEDS: ceFAZolin 1000MG 1,000 MG/7.5 ML SYR IV SCH (14:52)
[2024-09-23] MEDS: ASCORBIC ACID 500 MG TAB PO SCH (17:12)
[2024-09-23] MEDS: CALCIUM 600MG + VIT D 400 IU TAB PO SCH (21:15)
[2024-09-23] MEDS: SENNA 8.6 MG TAB PO SCH (21:16)
[2024-09-24] MEDS ORDERED: METOCLOPRAMIDE HCL INJ 5 MG/ML 2 ML VIAL IV PRN (00:52)
[2024-09-24] MEDS ORDERED: ONDANSETRON INJ 2 MG/ML 2 ML VIAL IV PRN (00:52)
[2024-09-24] MEDS ORDERED: diphenhydrAMINE Capsule 25 MG CAP PO PRN (00:52)
[2024-09-24] MEDS ORDERED: traMADol HCL 50 MG TABLET PO PRN (00:52)
[2024-09-24] MEDS ORDERED: NALOXONE HCL 0.4 MG/1 ML VIAL/CARP IV PRN (00:52)
[2024-09-24] MEDS ORDERED: HYDROmorphone INJ 0.5 MG/0.5 ML SYR IV PRN (00:52)
[2024-09-24 06:34] LABS: Basophils # (auto) 0.02 K/uL (0.00-0.20); Basophils % (auto) 0.2 %; Eosinophils # (auto) 0.04 K/uL (0.00-0.50); Eosinophils % (auto) 0.4 %; Hematocrit (blood only) 32.3 % (37.0-47.0); Hemoglobin 10.9 g/dl (12.0-16.0); Immature Granulocytes # (auto) 0.03 K/uL (0.01-0.20); Immature Granulocytes % (auto) 0.3 %; Lymphocytes # (auto) 1.68 K/uL (1.20-3.40); Lymphocytes % (auto) 17.8 %; Mean Corpuscular Hgb Conc 33.7 g/dL (32.0-36.0); Mean Platelet Volume 10.2 fL (9.4-12.4); Monocytes # (auto) 0.75 K/uL (0.11-0.59); Monocytes % (auto) 7.9 %; Neutrophils # (auto) 6.93 K/uL (1.40-6.50); Neutrophils % (auto) 73.4 %; Platelet Count 168 K/uL (130-400); RDW Coefficient of Variation 13.2 % (11.5-14.5); RDW Standard Deviation 43.6 fL (36.4-46.3); Red Blood Count 3.63 M/uL (4.20-5.40); White Blood Count 9.45 K/ul (4.8-10.8)
[2024-09-24 06:54] LABS: BUN Creatinine Ratio 26.3 (10-20); Calcium 9.7 mg/dl (8.6-10.3); Creatinine Clr Calc Pharmacy 70.4 ml/min; Potassium 3.9 mmol/L (3.5-5.1)
[2024-09-24 07:16] VITALS: TEMP 98.1
[2024-09-24] MEDS: MULTIVITAMIN TAB PO SCH (08:19)
[2024-09-24] MEDS: CHOLECALCIFEROL 25 MCG (1000 UNITS) TAB PO SCH (08:19)
[2024-09-24] MEDS: ADVANCED PROBIOTIC 625 MG CAPSULE PO SCH (08:19)
[2024-09-24] MEDS: dexAMETHasone 10 MG in SYRINGE 0 ML IV SCH (08:20)
[2024-09-24] MEDS ORDERED: ADVANCED PROBIOTIC 625 MG CAPSULE PO SCH (09:00)
[2024-09-24 10:53] VITALS: BP 117/74; PULSE 64; RESP 18; O2SAT 97
--- NOTE | 2024-09-24 12:22 | Orthopedic Progress Note ---
Date of Service September 24, 2024 Assessment & Plan (1) Status post left hip replacement: Assessment: Status post left total hip arthroplasty. Plan: Overall, she is doing quite well today with good pain control left hip. She will work with physical therapy later this morning to work on ambulation and range of motion exercises. She is on aspirin for DVT prophylaxis. She can be discharged home later this morning pending formal physical therapy evaluation and recommendations. She will follow-up in [address] Howell for continued postoperative management or sooner if needed. She verbalized understanding and agrees with this plan. Kenzie Powers was seen and evaluated this morning resting comfortably in no apparent distress. She notes that her pain is well-controlled today to her left hip. She has been up and out of bed with no significant issues. She has yet to work physical therapy this morning. She denies any concerns with surgical incision site. She notes the wound VAC is working as supposed to and maintaining negative pressure. She denies any active bleeding, discharge, or signs of infection. She denies any low back pain, distal extremity pain, numbness/ting, or paresthesias. She denies any other concerns today. Review of Systems All systems reviewed & are unremarkable except as noted in HPI & below. Physical Exam . On physical examination of the left hip, her dressings are clean, dry, intact with the wound VAC maintaining negative pressure. Her leg is out in full extension. He has limited range of motion secondary to postoperative stiffness and soreness. Calf soft nontender to palpation. Negative Homans' sign. Intact plantarflexion dorsiflexion of left ankle. +2 DP and PT pulses. Less than 2-s econd capillary refill. Normal sensation. Neurovascular intact. Results & Data Results & Data Laboratory Results . Diagnostic Findings . Hip/Pelvis X-Ray 09/23/24 08:31 XR hip 1V LT w pelvis CLINICAL HISTORY: IN PACU - Post Surgical COMPARISON: 07/19/2024 FINDINGS: AP pelvis and crosstable lateral view of the left hip demonstrates a left total hip arthroplasty has been performed with satisfactory positioning and alignment of the prosthetic components. Periarticular postsurgical changes are noted. Advanced osteoarthritis involving the right hip is redemonstrated. IMPRESSION: Unremarkable postop hip ACT 112: Negative or not required by law. Electronically signed by: Latoya Montero M.D. 09/23/2024 9:19 AM PG Care Time/CCT Total # of Minutes Spent Total Time Spent with Patient: Total time spent is greater than 50% in coordination of care (as documented) at patient's floor/unit and/or counseling patient: Coding Level of Care Code 26110 Post Operative Follow-Up Diagnoses Status post left hip replacement Z96.642
--- NOTE | 2024-09-24 12:24 | Discharge Summary ---
Date of Service September 24, 2024 Admission HPI (Per Admitting) . The patient is a 69-year-old female from [facility] who presents for evaluation and treatment of her hips. She has had a several year history of bilateral hip pain and discomfort and progressive stiffness. She is having more more difficulty putting her shoes on. That she takes medicines with pretty minimal relief. She limps all the time but gets worse as the day goes on. She has lost about 60 pounds but ended up putting about 30 of it back on. She is having difficulty staying active. She like to have her hips fixed. Admission Exam (Per Admitting) . Physical examination reveals a pleasant healthy middle-aged female who looks to be in pretty good health. Examination of both hips reveal patient walks independently. She walks with a little bit of waddling gait in [employer] ips. Examination left hip reveals external rotation contracture about 10 degrees. Leg lengths are pretty equal. She has pain with any attempted hip motion particularly internal rotation. She is neurologically intact. No effusion. Examination of the right hip reveals some stiffness but less than the left side. She can internally rotate to neutral. There are some mild pain. Negative straight leg raise. She is neurologically intact. Principal Diagnosis Same as "Discharge Diagnosis" noted below under Discharge Instructions. Discharge Exam . On physical examination of the left hip, her dressings are clean, dry, intact with the wound VAC maintaining negative pressure. Her leg is out in full extension. He has limited range of motion secondary to postoperative stiffness and soreness. Calf soft nontender to palpation. Negative Homans' sign. Intact plantarflexion dorsiflexion of left ankle. +2 DP and PT pulses. Less than 2- second capillary refill. Normal sensation. Neurovascular intact. Discharge Data Procedures Performed Operation Date: 09/23/24 07:00 Actual Procedures p Left Total Hip Arthroplasty(Left) - Gonzalo Howell MD Hospital Course (1) Status post left hip replacement: On September 23, 2024 Priya arrived at [facility] and underwent a left total hip arthroplasty performed by Dr. Howell with no issues. She had a spinal anesthetic. Postoperatively, she was started on aspirin for DVT prophylaxis and transferred to the general orthopedic floor in stable condition. Her hospital course was uneventful. On postoperative day #1, her vital signs are stable and her pain was well-controlled. She participated well with with physical therapy working on ambulation and range of motion exercises. She was then discharged home in stable condition. She will follow-up with Dr. Howell in 2 weeks for continued postoperative management or sooner if needed. PG Care Time/CCT Total # of Minutes Spent Total Time Spent with Patient: Total time spent is greater than 50% in coordination of care (as documented) at patient's floor/unit and/or counseling patient: Discharge Plan Discharge Items Patient Disposition: Home - Home Health Services Reason For Visit: Left Hip Osteoarthritis Discharge Diagnosis: Left Hip Replacement Activity: Per Instructions section Activity Comment: Follow/Obey hip precautions at all times Weightbearing: Full weightbearing Weightbearing Comment: Weightbear as tolerated obeying hip precautions at all times. Non-emergency contact: Surgeon Call non-emergency contact if: you have any medication questions Follow-up/Referrals: Jw Carrillo DO [Primary Care Provider] - Diet: Regular Addtl Attending Provider Instructions: ACTIVITY RECOMMENDATIONS: Diet: * You may resume previous diet. Physical Therapy: * Aggressive physical therapy is not usually needed. You will learn to take care of yourself safely and walk. * Follow the "Hip Precautions Instructions." * In some cases, the social security benefits interviewer at the hospital will arrange to have a therapist come to your house for the first couple of weeks to help you learn these skills. * You need to practice on your own or with the help of a family member as needed. * When you learn these skills, most of the therapy can be done on your own. Home Exercise: * You were shown a series of exercises in the hospital. Do these exercises three to four times each day including the exercises you were shown in physical therapy. Walking: * Get up and walk several times each day. For the first four weeks, try not to stand or walk for more than one hour at a time. If you do stand or walk for more than one hour, you will not hurt anything, but your leg will likely swell. * As you feel comfortable, you may change from the walker or crutches to a cane and then to independent walking. MEDICATIONS: New Medicine: * You will likely be taking one or more of these medicines: 1. Tramadol - Take, as directed, when you need it, every six hours to control your pain. 2. Aspirin - Thins your blood to lessen the chance of forming a blood clot. * The most common side effects of pain medicine and iron are nausea and constipation. If nausea or constipation is too much of a problem or if you have any questions about your new medicines or doses, call [facility] at . We will try to help you manage these issues. "VERY IMPORTANT TO READ AND REVIEW" Pain: * The immediate post-operative period after hip replacement surgery is often quite painful. * You are given a prescription for pain medicine. You should take it, as directed, when you need it, especially before physical therapy and before going to bed. Pain that interferes with sleep is very common and can last several months. * You will likely need pain medicine for the first two to four weeks. It will not stop all of the pain. The pain will lessen and as you feel better, you may change to milder pain medicine such as Tylenol. * The most common side effects of pain medicine are nausea and constipation, so don't take more than you need. SPECIAL CARE INSTRUCTIONS: TEDs/Elastic Stockings: * The white elastic stockings help limit swelling and prevent blood clots from forming in your legs. The more you wear them, the more they work. * Wear them for six weeks. Incision Site Care: * Remove dressing postoperative day 7 and then shower. Keep direct shower pressure off the incision site. * After showering, cover familia with dry gauze and change daily or more frequently if the dressing is getting saturated with drainage. * May completely stop using bandage if wound is dry and no drainage * Ambler are removed between 2 and 3 weeks post-op. If your follow-up appointment is made before 2 weeks, please have your appointment re- scheduled. It is too early to remove the familia. Prevention of Infection: * Take antibiotics one hour before any dental cleaning, dental work, urological procedure, gastrointestinal procedure or any invasive surgery in order to prevent your new joint from getting infected. * You may get the antibiotics from the doctor performing the procedure or you may call our office at before and we will call in a prescription to the pharmacy of your choice. Things to Watch For: * Drainage from the incision site that occurs more than one week after your surgery. * Severely increased leg pain or swelling. * Increased redness at the incision site. * Fever above 102 degrees Fahrenheit. * Unusual chest pain or shortness of breath. * Unusual pain or burning with urination. Call [facility] at with any of the above problems or if you have any questions about your medicines or recovery. FOLLOW UP VISIT: Make an appointment to see your doctor for approximately two weeks after surgery for a progress check and staple removal by calling the office at . Pending Studies at Discharge: No Stand-Alone Forms: My [facility], Smoking Cessation Medications and DC Order Prescriptions: Continued tramadol 50 mg tablet 50 - 100 mg PO Q6 PRN (Reason: pain) Qty: 40 0RF Rx Instructions: Take as needed for pain ketorolac 10 mg tablet 10 mg PO Q6 5 Days Qty: 20 0RF Rx Instructions: Take 4 times per day with food for 5 days to lessen pain and swelling. ondansetron 4 mg tablet,disintegrating 4 mg PO Q8 PRN (Reason: nausea) Qty: 20 1RF Rx Instructions: Take as needed for nausea sennosides [Senokot] 8.6 mg tablet 8.6 mg PO BID 14 Days Qty: 28 0RF Rx Instructions: Take two times a day to prevent/treat constipation acetaminophen [Tylenol Extra Strength] 500 mg tablet 1,000 mg PO TID 30 Days Qty: 180 0RF Rx Instructions: Take 3 times per day to lessen pain. aspirin [Gutierrez Low Dose Aspirin] 81 mg tablet,delayed release (DR/EC) 81 mg PO BID 45 Days Qty: 90 0RF Rx Instructions: Take to prevent blood clots. cholecalciferol (vitamin D3) 25 mcg (1,000 unit) capsule 25 mcg PO QAM Caltrate 600 plus D 600 mg-20 mcg (800 unit) tablet,chewable 1 tab PO BID Hair, Skin and Nails (biotin) 10,000 mcg Tablet,Chewable 30,000 mcg PO QAM Probiotic 2 tab PO QAM Krames/Other Patient Handouts: DVT Post Op Prevention Admission Data Admit Date/Time: 09/23/24 08:31 Attending Provider: Gonzalo Howell Admit Provider: Gonzalo Howell Primary Care Provider: Jw Carrillo Other Providers: Replaced By [facility],Home Health Other Interventions: Discharge Summary Assessment (RN) Last Done: 09/24/24 11:05
--- OUTSIDE RECORDS SUMMARY | 2024-09-24 17:13 | External Medical Summary | Summary of Care ---
Author Name Unknown Organization [facility] Address [address] [place] [address] Phone [phone] Care Team Providers Care Assembler For Puller Over Machine Name Role Phone Judd Franklin MD Primary Care Provider [phone] Encounter Details Date Type Department Care Team (Late st Contact Info) Description 09/18/2024 Population Health External Data Unspecified Department Allergies Active Allergy Reactions Criticality Noted Date Comments Clindamycin Rash 05/26/2021 Penicillin V Potassium 08/01/2006 hives Sulfa Antibiotics Nausea/vomiting 09/10/2008 documented as of this encounter (statuses as of 09/18/2024) Medications CALTRATE 600 + D 600-125 MG-IU PO TABS 0 6 Active FIBERCON 625 MG PO TABSIndications: Incontinence of feces one po bid 100 6 6 Active Additional Information Patient not taking.Reported on 05/26/2021 Nystatin 415645 UNIT/GM External CreamIndications :Cutaneous candidiasis Apply topically to affected area 2 times a day. To affacted area for two weeks. 30 g 2 Active documented as of this encounter (statuses as of 09/18/2024) Active Problems Problem Noted Date Diagnosed Date Urinary tract infection 10/09/2008 Female stress incontinence 10/01/2008 documented as of this encounter (statuses as of 09/18/2024) Resolved Problems Problem Noted Date Diagnosed Date Resolved Date ADVANCE DIRECTIVE INFORMATION 11/17/2009 07/01/2024 Overview (08/01/2006): Pt does not have a living will or power of attourny at this time documented as of this encounter (statuses as of 09/18/2024) Social History Tobacco Use Types Packs/Day Years Used Date Smoking Tobacco: Never Smokeless Tobacco: Never Alcohol Use Standard Drinks/Week Comments Not Currently 0 (1 standard drink = 0.6 oz pur e alcohol) rare Utilities Answer Date Recorded Do you have trouble paying y our heating, water, or electric bill? (Adult - for ages 18 years and over) Not on file 02/13/2024 Is your family able to pay t he heat, water, or electric bill? (Household - for ages 0-17 years) Not on file 02/13/2024 Does your family have access to good internet? (Household - for ages 0-17 years) Not on file 02/13/2024 Social Connections Answer Date Recorded How often do you feel lonely or isolated from those around you? (Adult - for ages 18 years and over) Not on file 02/13/2024 Comments No Sex and Gender Information Value Date Recorded Sex Assigned at Not on file Legal Sex Female 7:01 AM EST Gender Identity Not on file Sexual Orientation Not on file documented as of this encounter Plan of Treatment Health Maintenance Due Date Last Done Comments Lipid Panel 1957 Depression Screening 1969 Hepatitis C Screening 1975 DTap/Tdap Vaccines (1 - Tdap) 02/07/1976 Cologuard 2002 Colonoscopy 2002 Colorectal Cancer Screening 2002 Fecal Occult Blood Test 2002 Sigmoidoscopy 2002 Pneumococcal Vaccine: 50+ Years (1 of 1 - PCV) 2007 Zoster Vaccines (1 of 2) 2007 DXA Scan 2022 COVID-19 Vaccine (2 - 2023-2 5 season) 2024 01/10/2023 Influenza Vaccine (FLU shot) (#1) 2024 06/29/2021 Mammogram 08/04/2024 08/04/2023, 07/28/2022 HPV (Gardasil) Vaccine Aged Out No lo nger eligible based on patient's age to complete this topic Hepatitis B Vaccine Aged Out No longe r eligible based on patient's age to complete this topic MENINGOCOCCAL (MENACTRA/MENVEO) Aged Out No longer eligible b ased on patient's age to complete this topic documented as of this encounter Medical Devices Implanted Type Area Milling Machine Operator Gear Device Identifier Shelf Expiration Date Model / Serial / Lot Sling Align Retropubic [id number] - [id number] Implanted:Qty: 1 on 10/01/2008 at OR [facility] N/A: Vagina INACTIVE CR BARD : UROLOGICAL 03/28/2009 [id number] / / [id number] documented as of this encounter Care Teams Assembler For Puller Over Machine Relationship Specialty Start Date End Date Judd Franklin MD [address] [place] [address] PCP - General 08/01/06 documented as of this encounter
== END 2024-09-24 12:22 | disposition home health service (06) ==
LOC: ASU 05:09 → 3E 05:09